=== PATIENT | female | born 1985 | race African-American/Black ===

== ENCOUNTER 2017-12-30 14:53 | Emergency (ER) | payer MEDICAID ==
[~2017-12-30] VITALS: Ht 180.3 cm; Wt 77.0 kg
[2017-12-30] MEDS ORDERED: SODIUM CHLORIDE 0.9% 1,000 ML IV ONE (16:31)
[2017-12-30] MEDS ORDERED: KETOROLAC 30MG/ML VIAL IV STA (16:31)
[2017-12-30] MEDS ORDERED: ONDANSETRON HCL 4MG/2ML VIAL IV STA (16:31)
[2017-12-30] MEDS ORDERED: MORPHINE SULFATE 4 MG/ML CPJ (NOT FOR IM USE) IV STA (16:31)
[2017-12-30] MEDS ORDERED: LORAZEPAM 2MG/ML CPJ IV ONE (16:45)
[2017-12-30 16:54] LABS: BASOPHILS % 1.2 % (0.0-2.0); EOSINOPHILS % 5.3 % (0.0-5.0); HEMATOCRIT. 35.5 % (36.0-48.0); HEMOGLOBIN. 12.2 g/dL (12.0-16.0); LYMPHOCYTES % 32.6 % (20.0-50.0); MEAN CORPUSCULAR HEMOGLOBIN 30.4 pg (28.0-32.0); MEAN CORPUSCULAR VOLUME 88.7 fL (81.0-99.0); MEAN PLATELET VOLUME 8.3 fl (7.4-10.4); MONOCYTES % 10.3 % (2.0-8.0); NEUTROPHILS % 50.6 % (40.0-76.0); PLATELET 250 x1000/uL (130-400); RED CELL DISTRIBUTION WIDTH 14.7 % (11.6-14.6)
[2017-12-30 16:57] LABS: CHLORIDE 110 mEq/L (98-107)
[2017-12-30 16:59] LABS: INR 1.1; PROTHROMBIN TIME 11.9 sec (9.4-11.6)
[2017-12-30 17:01] LABS: ETHANOL BLOOD < 10 mg/dL
[2017-12-30 17:05] LABS: CREATINE KINASE 194 IU/L (26-192)
[2017-12-30 17:07] LABS: CLARITY URINE CLEAR (CLEAR); COLOR URINE YELLOW (YELLOW); KETONES URINE 3+ (NEGATIVE); LEUKOCYTE ESTERASE URINE 1+ (NEGATIVE); NITRITE URINE NEGATIVE (NEGATIVE); OCCULT BLOOD URINE 2+ (NEGATIVE); PH URINE 5.5 (4.5-8.0); PROTEIN URINE NEGATIVE (NEGATIVE); SPECIFIC GRAVITY URINE 1.022 (1.005-1.030)
[2017-12-30 17:13] LABS: HCG SCREEN NEGATIVE
[2017-12-30 17:24] LABS: *AMPHETAMINES SCREEN URINE NEGATIVE (NEGATIVE); *BARBITURATES SCREEN URINE NEGATIVE (NEGATIVE); *BENZODIAZEPINES SCREEN URINE NEGATIVE (NEGATIVE); *COCAINE SCREEN URINE NEGATIVE (NEGATIVE); METHADONE URINE SCREEN NEGATIVE (NEGATIVE)
[2017-12-30 17:25] LABS: OPIATES URINE SCREEN NEGATIVE (NEGATIVE); PHENCYCLIDINE URINE SCREEN NEGATIVE (NEGATIVE)
[2017-12-30 17:28] LABS: CANNABINOID URINE SCREEN PRESUMTIVE POSITIVE (NEGATIVE)
[2017-12-30] MEDS ORDERED: AMOXICILLIN/POTASSIUM CLAVULANATE 875/125MG TAB PO ONE (20:00)
[2017-12-30 20:25] VITALS: BP 124/65
== END 2017-12-30 20:27 | disposition home or self-care (01) ==
LOC: ER 15:29
DX: J32.9 Chronic sinusitis, unspecified (principal); N39.0 Urinary tract infection, site not specified; J45.909 Unspecified asthma, uncomplicated; F41.9 Anxiety disorder, unspecified; G43.909 Migraine, unspecified, not intractable, without status migrainosus
CPT/HCPCS: 36415; 70450; 80053; 80305; 81003; 82550; 84443; 84703; 85025; 85610; 96361; 96374; 96375; 99285; G0482; J1885; J2060; J2270; J2405; J7030; Z7610